=== PATIENT | female | born 1985 | race Caucasian/White ===

== ENCOUNTER 2017-02-06 10:26 | Inpatient (IN) ==
[2017-02-06] MEDS ORDERED: ACETAMINOPHEN 500 MG TABLET PO PRN ×2 (11:01→20:35)
[2017-02-06] MEDS ORDERED: CALCIUM CARBONATE Chewable 500mg TABLET PO PRN ×2 (11:01→20:35)
[2017-02-06] MEDS ORDERED: LIDOCAINE 1% (10mg/ml) 2mL INJ PF SDV ID PRN (11:01)
[2017-02-06] MEDS ORDERED: CARBOPROST 250 MCG/ML INJECTION IM PRN (11:01)
[2017-02-06] MEDS ORDERED: MAG-AL + SIM ORAL LIQUID 30ml PO PRN (11:01)
[2017-02-06] MEDS ORDERED: METHYLERGONOVINE 0.2 MG/ML INJECTION IM PRN (11:01)
[2017-02-06] MEDS: LR 1,000 ML IV PRN ×2 (11:19→16:05)
[2017-02-06 11:46] VITALS: BMI 35.3
[2017-02-06] MEDS ORDERED: ONDANSETRON 4 MG/2 ML INJECTION IVP PRN ×2 (14:03→20:35)
[2017-02-06] MEDS ORDERED: ROPIVACAINE 1% 10MG/ML INJ 200 MG, SUFentanil 50 MCG in NS 100 ML EPI PRN (14:03)
[2017-02-06] MEDS ORDERED: DiphenhydrAMINE 50 MG/ML INJECTION IVP PRN (14:03)
[2017-02-06] MEDS ORDERED: NALOXONE 0.4 MG/ML INJECTION IVP PRN (14:03)
--- NOTE | 2017-02-06 14:07 | Anesthesia Preoperative Report ---
Anesthesia Epidural/Spinal Rec - Date and Time Date: 02/06/17 Preoperative Diagnosis: 39 wks Procedure: Labor Epidural Plan: Epidural - Vital Signs Vital Signs: Temperature 96.8 F 02/06/17 11:48 Pulse Rate 80 02/06/17 11:48 Respiratory Rate 20 02/06/17 11:48 Blood Pressure 136/93 H 02/06/17 11:48 Pulse Oximetry 98 02/06/17 11:48 /Para: P:0 - Medictaions & Allergies Inpatient Medications: Current Medications Acetaminophen (Tylenol) 500 - 1,000 mg PO Q4H PRN PRN Reason: Pain Al Hydroxide/Mg Hydroxide (Maalox Plus) 30 ml PO Q3H PRN PRN Reason: Indigestion Calcium Carbonate (Tums) 500 - 1,000 mg PO Q2H PRN PRN Reason: Indigestion Carboprost Tromethamine (Hemabate) 250 mcg IM O PRN PRN Reason: .Downtime Diphenhydramine HCl (Benadryl) 25 - 50 mg IVP Q3H PRN PRN Reason: Itching Lactated Ringer's (Lactated Ringers) 1,000 mls @ 999 mls/hr IV .Q1H1M PRN Last Admin: 02/06/17 11:19 Dose: 999 mls/hr Ropivacaine 200 mg/ Sufentanil Citrate 50 mcg/ Sodium Chloride 121 mls @ 8 mls/ hr EPI PRN PRN PRN Reason: Protocol Lidocaine HCl (Xylocaine-Mpf 1% Vial) 0.2 mg ID O PRN PRN Reason: IV Start Methylergonovine Maleate (Methergine) 0.2 mg IM O PRN Misoprostol (Cytotec) 800 mcg ME ONCE PRN Naloxone HCl (Narcan) 0.1 mg IVP Q2M PRN PRN Reason: Respiratory distress Ondansetron HCl (Zofran) 4 mg IVP Q6H PRN PRN Reason: Nausea &/or vomiting Allergies/Adverse Reactions: Allergies Allergy/AdvReac Type Severity Reaction Status Date / Time No Known Allergies Allergy Verified 02/06/17 11:44 - Home Medications Home Medications: Home Medications Medication Instructions Recorded Confirmed Type Vit Calc,Iron,Folic 1 tab PO DAILY 02/06/17 02/06/17 History [ Vitamins] - Medical History Other History: Reports: Now DENIES: Anesthesia Reactions - Surgical History HEENT Surgeries: Reports: Other (wisdom teeth) Anesthesia Reactions: None Hx Family Anesthesia Reaction: No History of Motion Sickness: No - Social History Smoking Status: Never smoker Second Hand Exposure: No Substance Use Type: does not use Alcohol Intake Frequency: does not drink Hx Chewing Tobacco Use: No - Pertinent Findings Lab Data: CBC and BMP 02/06/17 11:19 EKG Rhythm: Normal Sinus Rhythm - Physical Exam Respiratory Exam: lungs clear Cardiovascular Exam: regular rate and rhythm - Airway Assessment Mallampati Score: II TMD: 3 Fingerbreadths Neck Extension: good Overall Assessment: may be difficult mask vent, may be difficult intubation - ASA ASA Score: 2 - Discussion Discussion: Discussed risks/options/alternatives of anesthesia and questions answered. Patient consents. Nursing pain assessment noted. Anesthesia Discussion: spouse Attestation Statement: Prior to the delivery of any anesthetic medication, I examined the patient, developed the plan, obtained the patient's consent and discussed the risk and benefits of the procedure with the patient/guardian.
[2017-02-06] MEDS ORDERED: CEFAZOLIN PREMIX (MC ONLY) 2 GM/50 ML BAG IV ONE (18:33)
[2017-02-06] MEDS ORDERED: CITRIC ACID/SODIUM CITRATE 30ml PO ONE (18:33)
[2017-02-06] MEDS ORDERED: FAMOTIDINE PB 20 MG/50 ML BAG IV ONE (18:33)
[2017-02-06] MEDS ORDERED: PHENYLEPHRINE INJ 10 MG/ML VIAL IV ONE (18:36)
[2017-02-06] MEDS ORDERED: SALINE FLUSH 10ml SYRINGE ONE (18:36)
[2017-02-06] MEDS ORDERED: ONDANSETRON 4 MG/2 ML INJECTION ONE (18:41)
[2017-02-06] MEDS: OXYTOCIN BOLUS BAG 30 UNIT/500 ML ML IV SCH ×2 (19:25→19:44)
[2017-02-06] MEDS ORDERED: MORPHINE SULFATE PF 5mg/10ml INJ (Duramorph) ONE (19:39)
[2017-02-06] MEDS ORDERED: HYDROCODONE/APAP 5mg/325mg TABLET PO PRN (20:35)
[2017-02-06] MEDS ORDERED: OXYTOCIN DRIP 30 UNIT/500 ML ML IV SCH (20:35)
[2017-02-06] MEDS ORDERED: SIMETHICONE 80 MG CHEWABLE TABLET PO PRN (20:35)
[2017-02-06] MEDS ORDERED: HYDROCORTISONE 2.5% CREAM 30gm RECTALLY PRN (20:35)
[2017-02-06] MEDS ORDERED: SALINE FLUSH 10ml SYRINGE IV PRN (20:35)
[2017-02-06] MEDS ORDERED: D5LR 1,000 ML IV SCH (20:35)
[2017-02-07] MEDS ORDERED: DiphenhydrAMINE 50 MG/ML INJECTION IVP PRN (00:48)
[2017-02-07] MEDS: SIMETHICONE 80 MG CHEWABLE TABLET PO SCH ×2 (03:09→10:33)
[2017-02-07] MEDS: DiphenhydrAMINE 25 MG CAPSULE PO PRN ×2 (03:49→10:36)
--- NOTE | 2017-02-07 07:26 | Progress Note ---
OB PP Progress Note Free Text - Date Date: 02/07/17 - Progress Note Progress Note: POD1 Hgb noted vss af pt sleeping so i will return later. q&a-krb
--- NOTE | 2017-02-07 08:14 | Operative Note ---
DATE OF SURGERY: 02/06/2017 PREOPERATIVE DIAGNOSES 1. 32-year-old white female G1, P0 at 39.4 weeks gestational age. 2. Spontaneous labor. 3. Artificial rupture of membranes. 4. Light meconium. 5. Left occiput transverse presentation. 6. Arrest of descent. PROCEDURE: Primary low transverse section. ANESTHESIA: Epidural by Scott [place] CRNA SURGEON: Alvin Nicole MD COMMUNITY RELATIONS LIAISON: Naveen Campoverde DO PEDS: Nick Costa MD EBL: 1000 cc COMPLICATIONS: None. BRIEF DESCRIPTION This is a patient of Dr. Lux that came in in spontaneous labor this morning. She was initially 4 cm dilated. She was admitted and AROM occurred at 11:53 a.m. with light meconium noted. The patient progressed spontaneously to complete dilation and we pushed for about 2-1/2 hours but the remained in the LOT presentation and I was unable to manually rotate and it did not spontaneously rotate. We never made it past a +1-1/2 station. There was a large caput present. There were intermittent late decelerations but otherwise it was a reactive strip with an increasing baseline. For these reasons we called a . PROCEDURE: After adequate anesthesia the patient was prepped and draped in the left lateral decubitus position. I placed her in low lithotomy stirrups as well because the baby was wedged in the pelvis. A Pfannenstiel skin incision was made with a sharp knife and carried down to the fascia which was incised transversely with the Alva scissors. Rectus fascia was bluntly and sharply dissected off the rectus muscles. Rectus muscles were and peritoneum was isolated, entered and extended cephalad and caudad. Bladder blade was inserted and a bladder flap was created and dissected off the lower uterine segment then the bladder blade was reinserted. The head was deeply wedged down in the pelvis. I had MARIANGEL Marinelli, (the charge nurse) ready from below and I waited until a contraction was just finishing; the patient was coming off a contraction and then I made a transverse lower uterine segment incision and I met with moderate meconium. I then was able to reach around the baby's head with some elevation from below and bring the baby up and out. Infant was bulb suctioned after delivery of the head and then again after delivery of the body. Cord was doubly clamped and cut and the was received by Dr. Nick Costa of Pediatrics. Placenta was removed manually and was intact. It will be sent to Pathology. Uterus was externalized and cleansed with moist lap sponges and then ring forceps were placed and uterine closure was begun. Uterus was closed using a 0-Monocryl in a running locking fashion. Hemostasis was confirmed. The bladder flap was reapproximated with the visceral peritoneum using 3-0 Vicryl in a running locking fashion. Posterior cul-de-sac was cleansed and the uterus was returned to the abdominal cavity. The abdomen was closed in layers. Peritoneum was closed using 2-0 Vicryl in a running nonlocking fashion. Fascia was closed using 0-Vicryl in a running nonlocking fashion bilaterally from the lateral aspects medially. Skin was closed using wide jaclyn in a serial fashion. Hemostasis was confirmed at every layer. The patient went to the recovery room in stable condition. [facility]OSPITALMal[facility]
[2017-02-07] MEDS: DOCUSATE CALCIUM 240 MG CAPSULE PO SCH (10:32)
[2017-02-07] MEDS: IBUPROFEN 800 MG TABLET PO PRN (17:36)
--- NOTE | 2017-02-07 17:54 | OB/GYN Progress Note ---
OB-Progress Note Free Text - Date Date: 02/07/17 - Progress Note Progress Note: doing well vss af long discussion about delivery and recovery and limitations q&a-krb
[2017-02-08] MEDS: SIMETHICONE 80 MG CHEWABLE TABLET PO SCH ×6 (03:07→21:10)
[2017-02-08] MEDS: IBUPROFEN 800 MG TABLET PO PRN ×3 (04:57→21:10)
[2017-02-08] MEDS: DOCUSATE CALCIUM 240 MG CAPSULE PO SCH (08:59)
--- NOTE | 2017-02-08 09:49 | OB/GYN Progress Note ---
OB-Progress Note Free Text - Date Date: 02/08/17 - Progress Note Progress Note: vss af pt in shower currently RN has no concerns on behalf of patient. Dr. Lux to be back sometime today and assume care at that time. -clayb
--- NOTE | 2017-02-08 13:27 | Progress Note ---
OB PP Progress Note Free Text - Date Date: 02/08/17 - Progress Note Progress Note: S: Pt doing fairly well postoperatively. Having difficulties w/ BF, tearful, no sig colostrum production yet. Working w/ . Zac PO/Amb/Void. Pos flatus. Minimal lochia. Minimal pain. O: AF VSS FF/NT at [facility]: CDI Ext: trace edema & neg Basil's bilat A/P: 32yo POD #2 s/p PLTCS for FTD - overall doing well, continue to work w / . Plan d/c home tomorrow afternoon & remove jaclyn prior to dismissal. ?s a/a. Pt stated understanding.
[2017-02-09] MEDS: IBUPROFEN 800 MG TABLET PO PRN ×2 (05:21→13:00)
[2017-02-09 06:17] VITALS: RESP 16; O2SAT 97
[2017-02-09] MEDS: SIMETHICONE 80 MG CHEWABLE TABLET PO SCH ×2 (10:49→13:44)
[2017-02-09] MEDS: DOCUSATE CALCIUM 240 MG CAPSULE PO SCH (10:49)
--- NOTE | 2017-02-09 13:38 | Discharge Summary ---
OB Discharge Summary Reason for Hospitalization:: Date: 02/09/17 Labor Procedures: AROM Delivery: Primary Treatment: Methergine, Cytotec for Atony - Final Diagnosis arrest of descent : 1 Para: 0 Weeks: 39 Days: 4 Sex and Viability: viable female Comment: Name: Yaona Gilbert Weight: 3.62 kg Consultations: 02/06/17 20:35 Nurse Consult [CONS] Routine Comment: anesthesia Instructions: Discharge Instructions: Maternal Child Mother Dismissal Instructions Given (diet, activity, and medications, follow-up) Home Medications: Home Medications Medication Instructions Recorded Confirmed Type Vit Calc,Iron,Folic 1 tab PO DAILY 02/06/17 02/06/17 History [ Vitamins] Discharge Plan - Discharge Disposition Discharge Date: 02/09/17 Disposition: 01 Discharged Home, Self-Care *Condition: Stable Reason For Visit (Visit label in EMR): - Discharge Medications *Discharge Medications: New Hydrocodone/APAP 5/325 [[place] 5/325] 1 - 2 tab PO Q4H PRN #20 tab PRN Reason: Pain Ibuprofen [Motrin] 800 mg PO Q8H PRN #45 tab PRN Reason: Pain Continue Vit Calc,Iron,Folic [ Vitamins] 1 tab PO DAILY - Discharge Packet/Instructions *Diet: Regular diet. Eat lots of fresh fruit, vegetables and fiber. *Activity: No sex, douching or tampons for at least 6 weeks (nothing in the vagina). No heavy lifting, abdominal exercises or strenuous activity until released by the physician. This includes pushing/pulling activities like moving furniture, vacuuming or lifting loads of laundry. Take stairs slowly. *Pain Management/Treatment: Take pain medications as prescribed. No driving without physician approval or while taking narcotics. Use a stool softener if needed for constipation or hemorrhoids. Apply witch daniel pads to relieve discomfort in the vaginal area. *Wound Care: May shower, pat the incision dry. Do not rub. Additional Instructions: Follow up with 1 weeks *Expected Signs/Symptoms: Vaginal bleeding, which is heavier than your period- generally stops within two months. *Notify Physician if: Call for fever over 100.5 degrees Fahrenheit, chills, unusually heavy bleeding or worsening pain. Call if any sign of infection in your incision. Signs of infection are redness, pus or opening of the incision. *During Business Hours Contact: Call [phone] *After Business Hours Contact: Call [phone] ([facility] [place] [place] [place] - Referrals/Follow Up *Referrals/Follow Up: Sarahi Lux MD [Family Provider] - 02/21/17 10:30 am - Patient Handouts Patient Handouts: [facility] Delivery
[2017-02-09 14:31] VITALS: BP 143/87; PULSE 88; TEMP 98.6
== END 2017-02-09 14:57 | disposition home or self-care (01) | DRG 766 ==
LOC: OBOBS 10:26 → MC 10:27
PROVIDERS: ADMIT Obstetrics & Gynecology; ATTEND Family Medicine